=== PATIENT | female | born 1990 | race Caucasian/White ===

== ENCOUNTER 2022-10-31 09:48 | Emergency (ER) | payer SELFPAY ==
[2022-10-31 10:00] VITALS: BP 151/100; PULSE 72; RESP 16; TEMP 36; O2SAT 100; BMI 39.0
--- NOTE | 2022-10-31 10:22 | ED.CHESTPAIN ---
HPI - Chest Pain General Chief Complaint: Chest Pain Stated Complaint: Heart pain Time Seen by Provider: 10/31/22 10:21 History of Present Illness HPI narrative: 31-year-old woman presenting to the emergency department with complaint of little over 5 hours of mid sternal to just a little left sternal area chest pain. Describes it as a sharp ache. She woke from sleep at about 5:00 a.m. with this. She denies a history of heartburn. No shortness of breath. No nausea. Has had waxing and waning headache which she describes is frontal indicating oriental orthodox to oriental orthodox that she thinks is escalating when her blood pressure seems a little bit elevated. She does have a blood pressure 151/100 though it is lower during time of my assessment. Has been no head trauma noted. Does not have any neck pain. No fever cough and cold symptoms. Has had a feeling of some subtle dizziness. No discoordination. Also a little lightheadedness. No palpitations/irregular heartbeats. No leg pain, pressure swelling. Notes her blood pressure usually to be about 120/60. Does not have a significant family history of cardiac disease noting grandfather and an uncle. Just prior to my entering the room she does note that the palm of her left hand went tingly and then numb for about a minute and has now resolved. If it was not for the chest discomfort she would not be here. Related Data Home Medications Medication Instructions Recorded Confirmed folic acid 1 mg tablet 10/31/22 lacosamide 100 mg tablet mg 10/31/22 levetiracetam 500 mg mg PO 10/31/22 tablet,extended release 24 hr levothyroxine 150 mcg tablet mcg 10/31/22 venlafaxine 150 mg mg PO 10/31/22 capsule,extended release 24 hr Review of Systems Status of ROS Reports: 10 or more systems reviewed and unremarkable except as noted in History and below PFSH PFS Social History Smoking Status: Never smoker Do you use any of these nicotine containing products: None Second hand tobacco smoke exposure: No How often do you have a drink containing alcohol: never How often do you have six or more drinks on one occasion: Never AUDIT-C Alcohol total score: 0 Non-prescribed substance use: denies use service: No Exam Narrative Exam Narrative: Pleasant. NAD. Calm. Hair is dyed reddish pink. Breathing easily. Easily conversant. Skin is warm and dry. Extremities are well perfused without edema. Negative Homans. Neck is supple without lymphadenopathy. Oropharynx is moist and not erythematous. There is no supraclavicular crepitus. Lungs are clear. heart in a regular rhythm at a regular rate. Palpation of the chest wall does not clearly reproduce discomfort in areas as mentioned. Abdomen overweight soft no masses appreciated. Not particularly tender. Strong and equal radial pulses. No sensory deficits at this time. Mention was made of midback discomfort at one point. I return to examine and clearly quite tender in the left rhomboid/periscapular musculature. I am not convinced though that this is necessarily related to the chest discomfort. Const Vital Signs, click to edit/add: Vital Signs - 24 hr 10/31/22 10:00 Temperature 96.8 F L Pulse Rate [Left Pulse Oximeter] 72 Respiratory Rate 16 Blood Pressure [Left Upper Arm] 151/100 H Pulse Oximetry 100 Oxygen Delivery Method Room Air Documenting provider has reviewed patient's vital signs: yes Course Vital Signs Vital signs: Initial Vital Signs Temperature 96.8 F L 10/31/22 10:00 Temperature Source Temporal Artery Scan 10/31/22 10:00 Pulse Rate 72 10/31/22 10:00 Pulse Rhythm 10/31/22 10:00 Pulse Strength 3+ Normal 10/31/22 10:00 Respiratory Rate 16 10/31/22 10:00 Blood Pressure 151/100 H 10/31/22 10:00 Blood Pressure Mean 117 10/31/22 10:00 Blood Pressure Position Sitting 10/31/22 10:00 Pulse Oximetry 100 10/31/22 10:00 Oxygen Delivery Method 10/31/22 10:00 Vital Signs Temperature 96.8 F L 10/31/22 10:00 Pulse Rate 72 10/31/22 10:00 Respiratory Rate 16 10/31/22 10:00 Blood Pressure 151/100 H 10/31/22 10:00 Pulse Oximetry 100 10/31/22 10:00 Oxygen Delivery Method 10/31/22 10:00 Temperature 96.8 F L 10/31/22 10:00 Pulse Rate 72 10/31/22 10:00 Respiratory Rate 16 10/31/22 10:00 Blood Pressure 151/100 H 10/31/22 10:00 Pulse Oximetry 100 10/31/22 10:00 Oxygen Delivery Method 10/31/22 10:00 MDM - Chest Pain MDM Narrative Medical decision making narrative: Will be obtaining labs. Symptoms appear generally benign. However chest discomfort is not clearly reproducible. It seems Ms. Hollis may have had some question as to whether not lacosamide might be causing some of her discomfort. We discussed a broad differential. Unremarkable laboratory evaluation as well as one view chest x-ray as reviewed by me. No events on monitor during time in emergency department. Discomfort remained though appeared tolerable. Medical Records Data Attestation: I reviewed the patient's medical records. Lab Data Attestation: I reviewed the patient's lab results. Labs: Lab Results 10/31/22 10/31/22 10/31/22 Range/Units 10:31 10:51 10:51 WBC 6.54 (4.50-11.00) K/uL RBC 4.71 (4.00-5.20) m/uL Hgb 13.6 (12.0-16.0) gm/dL Hct 40.5 (33.0-51.0) % MCV 86 (80-100) fL MCH 29 (26-34) pg MCHC 34 (32-36) gm/dL RDW Coeff of Izaiah 12.8 (11.5-15.5) % Plt Count 226 (140-440) K/uL Neut % (Auto) 54.5 (42.0-72.0) % Lymph % (Auto) 32.9 (20-44) % [place] % (Auto) 9.2 (0.0-11.0) % Eos % (Auto) 2.3 (0.0-7.0) % Baso % (Auto) 0.8 (0.0-3.0) % Neut # (Auto) 3.57 (1.7-7.0) K/uL Lymph # (Auto) 2.15 (0.90-2.90) K/uL [place] # (Auto) 0.60 (0.00-0.90) K/UL Eos # (Auto) 0.15 (0.00-0.50) K/uL Baso # (Auto) 0.05 (0.00-0.30) K/uL D-Dimer Quant (PE/DVT) < 0.27 (0.00-0.50) ug/ml Sodium (135-149) mmol/L Potassium (3.6-5.1) mmol/L Chloride (96-114) mmol/L Carbon Dioxide (20-32) mmol/L BUN (5-24) mg/dL Creatinine (0.5-1.5) mg/dL Estimated Creat Clear Estimated GFR ml/min Glucose (60-115) mg/dL Calcium (8.4-10.6) mg/dL Total Bilirubin (0.1-1.5) mg/dL Direct Bilirubin (0.0-0.5) mg/dL AST (12-35) U/L ALT (4-35) U/L Alkaline Phosphatase (40-150) U/L Troponin I (0.01-0.04) ng/mL C-Reactive Protein (0.5-1.0) mg/dL NT-Pro-B Natriuret Pep pg/mL Total Protein (6.0-8.3) g/dL Albumin (3.3-5.0) g/dL Lipase (23-300) U/L POC Troponin I 0.00 L (0.01-0.04) ng/ml 10/31/22 Range/Units 10:51 WBC (4.50-11.00) K/uL RBC (4.00-5.20) m/uL Hgb (12.0-16.0) gm/dL Hct (33.0-51.0) % MCV (80-100) fL MCH (26-34) pg MCHC (32-36) gm/dL RDW Coeff of Izaiah (11.5-15.5) % Plt Count (140-440) K/uL Neut % (Auto) (42.0-72.0) % Lymph % (Auto) (20-44) % [place] % (Auto) (0.0-11.0) % Eos % (Auto) (0.0-7.0) % Baso % (Auto) (0.0-3.0) % Neut # (Auto) (1.7-7.0) K/uL Lymph # (Auto) (0.90-2.90) K/uL [place] # (Auto) (0.00-0.90) K/UL Eos # (Auto) (0.00-0.50) K/uL Baso # (Auto) (0.00-0.30) K/uL D-Dimer Quant (PE/DVT) (0.00-0.50) ug/ml Sodium 140 (135-149) mmol/L Potassium 3.5 L (3.6-5.1) mmol/L Chloride 113 (96-114) mmol/L Carbon Dioxide 17 L (20-32) mmol/L BUN 11 (5-24) mg/dL Creatinine 0.6 (0.5-1.5) mg/dL Estimated Creat Clear 112.38 Estimated GFR 123 ml/min Glucose 83 (60-115) mg/dL Calcium 9.2 (8.4-10.6) mg/dL Total Bilirubin 0.5 (0.1-1.5) mg/dL Direct Bilirubin 0.3 (0.0-0.5) mg/dL AST 29 (12-35) U/L ALT 23 (4-35) U/L Alkaline Phosphatase 50 (40-150) U/L Troponin I < 0.01 L (0.01-0.04) ng/mL C-Reactive Protein 0.7 (0.5-1.0) mg/dL NT-Pro-B Natriuret Pep 24 pg/mL Total Protein 7.2 (6.0-8.3) g/dL Albumin 4.3 (3.3-5.0) g/dL Lipase 92 (23-300) U/L POC Troponin I (0.01-0.04) ng/ml ECG Data Attestation: I personally reviewed and interpreted this ECG as follows: (Normal sinus rate of [address] elevations or depressions and no Q-waves.) Discharge Plan Discharge Clinical Impression: Atypical chest pain, Rhomboid myalgia Patient Disposition: Home w/ Parent or Adult Condition: Stable Additional Instructions: See handout on exercises for your upper back. Do that daily for a while, maybe incorporated into a regular exercise routine where you get your heart pumping a little bit every day. Return for marked increase in pain, associated shortness of breath. For now try naproxen as discussed up to 500 mg 2 times daily for the next 5 days. Might take this with a little bit of food. Prescriptions: No Action venlafaxine 150 mg capsule,extended release 24hr PO Label Comments: TAKE 1 CAPSULE BY MOUTH ONCE DAILY WITH EVENING MEAL. levothyroxine 150 mcg tablet Label Comments: TAKE 1 TABLET (150 MCG) BY MOUTH BEFORE BREAKFAST. folic acid 1 mg tablet Label Comments: TAKE 1 TABLET BY MOUTH EVERY DAY levetiracetam 500 mg tablet extended release 24 hr PO Label Comments: TAKE 4 TABLETS BY MOUTH TWICE A DAY lacosamide 100 mg tablet Label Comments: TAKE 1/2 TABLET TWICE DAILY FOR 1 WEEK,THEN 1 TABLET TWICE DAILY AND CONTINUE WITH THAT DOSE Follow Up/Referrals: Jess Marti MD [Primary Care Provider] - Stand Alone Forms: [employer] Info Instructions
--- NOTE | 2022-10-31 10:31 | CRLHL7_ITS ---
For Patients: As a result of the Century Cures Act, medical imaging exams and procedure reports are released immediately into your electronic medical record. You may view this report before your referring provider. If you have questions, please contact your health care provider. INDICATION: Chest pain. Technique: One-view chest. COMPARISON: None. FINDINGS: The lungs are clear. There is no pleural effusion or pneumothorax. The cardiac silhouette and pulmonary vascularity are normal. The osseous structures are normal for age. IMPRESSION: No acute pulmonary process. Dictated by Domo Dukes MD @ 10/31/2022 11:38:39 AM (Electronically Signed)
--- OUTSIDE RECORDS SUMMARY | 2022-10-31 10:45 | XMS_ITS ---
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 7108 34121 (current) drug therapy Problem Unspecified 268.9 Active 29421864 vitamin D deficiency Problem Epilepsy, G40.919 Active 318137844 unspecified, intractable, without status epilepticus Problem Depressive 311 Active 91107706 disorder, not elsewhere classified Problem Localization-relat 345.40 Active 4 49793313 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, without mention of intractable epilepsy Problem state, V22.2 Active 7738 6006 incidental Problem Epilepsy 649.40 Active 5256887257 32057 complicating , childbirth, or the puerperium, unspecified as to episode of care or not applicable Problem Unspecified 345.90 Active 35076318 epilepsy without mention of intractable epilepsy ALLERGIES Substance Reaction Event Type Date Status Levothyroxine (bulk) Drug Allergy Jul, Active Keflex Unknown Drug Allergy Jul, Active Amoxicillin rash Drug Allergy Jul, Active ENCOUNTERS Encounter Location Date Diagnosis [facility] [address] [place] Jul, Unspe cified [facility] [address] [place], [place] [address] intractable epil epsy 345.90 and [facility]) drug [facility] herapy Z79.899 [facility] [address] [place] Jun, Group [facility] [address] [place] [address] [facility] [address] [place] May, Group [facility] [address] [place] [address] [facility] [address] [place] May, Group [facility] [address] [place] [address] [facility] [address] [place] May, Group [facility] [address] [place] [address] [facility] [address] [place] Dec, Group [facility] [address] [place] [address] [facility] [address] [place] Dec, [place] [place] [address] [facility] [address] [place] Nov, [place] [place] [address] [facility] [address] [place] Aug, Unspeci fied epilepsy Group [place] [address] [place], [place] [address] intractable epil epsy 345.90 and [facility] drug [place] herapy Z79.899 [facility] [address] [place] Apr, Epile psy, unspecified, Group [facility] [place] [place] intractable, [place] [address] status epileptic us G40.919 [facility] [address] [place] Apr, Group [place] [address] [place] [address] [facility] [address] [place] Oct, Epile psy, unspecified, Group [facility] [place] [place] intractable, [place] [address] status epileptic us G40.919 [facility] [address] [place] Sep, Epile psy, unspecified, Group [facility] [place] intractable, [place] [address] status epileptic us G40.919 and Other long t erm (current) drug t herapy Z79.899 [facility] [address] [place] Sep, Group [place] [address] [facility] [address] [place] May, Epile psy, unspecified, Group [place] intractable, [place] [address] status epileptic us G40.919 [facility] [address] [place] May, 2020 KENNY SHAFFER [id number] [facility] [address] [place] Apr, Epile psy, unspecified, Group [place], [place] [address] status epileptic us G40.919 and Other long t erm (current) drug t herapy Z79.899 [facility] [address] [place] Apr, Group [place] [address] [facility] [address] [place] Apr, [place] [facility] Group [facility] KE[facility] drug therapy Z 79.899 and [address] Epilepsy, unspec ified, intractable, wit hout status epileptic us G40.919 [facility] [address] [place] Apr, [place] [address] [facility] [address] [place] Apr, [place] [address] [facility] [address] [place] Apr, Epile psy, unspecified, Group [place] [place] intractable, [place] [address] status epileptic us G40.919 [facility] [address] [place] Apr, Epile psy, unspecified, Group [place]EN[place] intractable, [place] [address] status epileptic us G40.919 and Other long t erm (current) drug t herapy Z79.899 [facility] [address] [place] 15 Oct, 2019 [place] [address] [facility] [address] [place] 14 Oct, 2019 Epile psy, unspecified, Group [place] intractable, [place] [address] status epileptic us G40.919 [facility] [address] [place] Oct, Epile psy, unspecified, Group [place] intractable, [place] [address] status epileptic us G40.919 [facility] [address] [place] Sep, Epile psy, unspecified, Group PA [address] [place], [place] intractable, [place] [address] status epileptic us G40.919 and Other long t erm (current) drug t herapy Z79.899 [facility] [address] [place] Sep, Epile psy, unspecified, Group PA [address] [place], [place] intractable, [place] [address] status epileptic us G40.919 [facility] [address] [place] Sep, Epile psy, unspecified, Group PA [address], [place] intractable, [place] [address] status epileptic us G40.919 and Other long t erm (current) drug t herapy Z79.899 [facility] [address] [place] Sep, Epile psy, unspecified, Group PA [address] [place], [place] intractable, [place] [address] status epileptic us G40.919 [facility] [address] [place] Sep, Epile psy, unspecified, Group PA [address] [place], [place] intractable, [place] [address] status epileptic us G40.919 [facility] [address] [place] Aug, Group PA [address] [place] [address] [facility] [address] [place] Aug, Epile psy, unspecified, Group PA [address] [place], [place] intractable, [place] [address] status epileptic us G40.919 and Other long t erm (current) drug t herapy Z79.899 [facility] [address] [place] Sep, Epile psy, unspecified, Group PA [address], [place] intractable, [place] [address] status epileptic us G40.919 and Other long t erm (current) drug t herapy Z79.899 [facility] [address] [place] May, Epile psy, unspecified, Group PA [address] [place], [place] intractable, [place] [address] status epileptic us G40.919 and Other long t erm (current) drug t herapy Z79.899 [facility] [address] [place] Apr, Epile psy, unspecified, Group [facility] [place] [place] intractable, [place] [address] status epileptic us G40.919 [facility] [address] [place] Apr, Epile psy, unspecified, Group KENNY [place] intractable, [place] [address] status epileptic us G40.919 and Other long t erm (current) drug t herapy Z79.899 [facility] [address] [place] February, Group [place] [address] [facility] [address] [place] Nov, Epile psy, unspecified, Group [place] int[place], [place] [address] status epileptic us G40.919 and Other long t erm (current) drug t herapy Z79.899 [facility] [address] [place] Oct, Group [place] [address] [facility] [address] [place] Nov, Group [place] [address] [facility] [address] [place] Oct, Group [place] [address] DO NOT USE [facility] [address] Sep, [facility] [address] [place] [id number] Group [facility] [address] [place] Jul, Group [place] [address] [facility] [address] [place] Sep, Encou nter for long-term Group KENNY KELLOGG (current) use of other [address] medications V58. 69 and Unspecified epil epsy without mention of intractable epil epsy 345.90 [facility] [address] [place] Aug, Group [place] [address] [facility] [address] [place] Aug, Group [place] [address] [facility] [address] [place] Mar, Group [place] [address] [facility] [address] [place] February, Group [place] [address] [facility] [address] [place] February, [place] [address] [facility] [address] [place] February, Local ization-related Group [place] (focal)(partia l) epilepsy [address] and epileptic sy ndromes with partial sei zures secondary genera lized, without mention of intractable epil epsy 345.40 ; Encount er for long-term (curre nt) use of other medication s V58.69 ; Epilepsy complic ating , child , or the puerperium, unspecified as t o episode of care or not a pplicable 649.40 and Pregn ant state, incidental V22.2 [facility] [address] [place] Mar, [place] [address] [facility] [place] Nov, Local ization-related Group [place] (focal) (parti al) epilepsy [address] and epileptic sy ndromes with complex par tial seizures, withou t mention of intractable e pilepsy 345.40 [facility] [place] Nov, Unspe cified epilepsy with Group [place] intractable ep ilepsy [address] 345.91 [facility] [address] [place] [address] A[place] Aug, [place] [address] [facility] [place] Aug, Local ization-related Group [place] (focal) (parti al) epilepsy [address] and epileptic sy ndromes with complex par tial seizures, withou t mention of intractable e pilepsy 345.40 [facility] [place] Mar, Group [place] [place] [address] [facility] [address] [place] Mar, [place] [address] IMMUNIZATIONS No Known Immunizations SOCIAL HISTORY Never Assessed REASON FOR REFERRAL FUNCTIONAL STATUS PLAN OF CARE Activity Details Follow Up 6 Months Reason: Future Test Electrocardiogram (EKG) 2021 1019 Future Test LEVETIRACETAM 20200509 Future Test LEVETIRACETAM 20180929 Future Test TOPIRAMATE 38242208 Future Test Levetiracetam (Keppra), S 20 175397 Future Test CBC With Differential/Platel et 20130303 Future Test Comp. Metabolic Panel (14) 2 3967244 Pending Test TOPIRAMATE Pending Test MAGNESIUM VITAL SIGNS Weight 104.4 kg 2021-08-27 Weight 101 kg 2020-10-01 Weight 97.7 kg 2020-05-16 Weight 95.3 kg 2019-09-21 Weight 91.9 kg 2018-09-29 Weight 85 kg 2017-09-16 Weight 93 kg 2016-09-24 Weight 101 kg 2016-05-29 Weight 102 kg 2015-12-12 Weight 91.2 kg 2013-09-22 Weight 92.9 kg 2013-03-02 Weight 93.3 kg 2011-11-20 Height 64 in 2022-08-06 Height 64 in 2021-08-27 Height 64 in 2020-10-01 Height 64 in 2020-05-16 Height 64 in 2019-09-21 Height 64 in 2018-09-29 Height 64 in 2017-09-16 Height 64 in 2016-09-24 Height 64 in 2016-05-29 Height 64 in 2015-12-12 Height 64 in 2013-09-22 Heart Rate 70 /min 2021-08-27 Heart Rate 92 /min 2020-10-01 Heart Rate 75 /min 2020-05-16 Heart Rate deferred /min 2019-09-21 Heart Rate 65 /min 2018-09-29 Heart Rate 70 /min 2017-09-16 Heart Rate 72 /min 2016-09-24 Heart Rate 54 /min 2016-05-29 Heart Rate 96 /min 2015-12-12 Heart Rate 62 /min 2013-09-22 Heart Rate 90 /min 2013-03-02 Heart Rate 97 /min 2011-11-20 BMI 39.50 kg/m2 2021-08-27 BMI 38.22 kg/m2 2020-10-01 BMI 36.97 kg/m2 2020-05-16 BMI 36.06 kg/m2 2019-09-21 BMI 34.77 kg/m2 2018-09-29 BMI 32.16 kg/m2 2017-09-16 BMI 35.19 kg/m2 2016-09-24 BMI 38.22 kg/m2 2016-05-29 BMI 38.59 kg/m2 2015-12-12 BMI 34.51 kg/m2 2013-09-22 BMI 27.12 kg/m2 2010-08-27 Blood pressure systolic 149 mm Hg 2021-08-27 Blood pressure diastolic 89 mm Hg 2021-08-27 MEDICATIONS Medication Instructions Dosage Frequency Start End Duration Statu s Date levETIRAcetam ER orally twice a 4 tablets 90 day s Active 500 MG day (bid) Citalopram 40 MG Orally Once a 0.5 tablet 24h Not-Takin g Folic Acid 1 mg 1 tablet 30 days Active SEROquel 25 MG Orally at 2 tablets Not-T porsha bedtime (q hs) g Topiramate 50 MG orally twice a 2 tablets 90 day s Active day (bid) Calcium with 4 tabs 24h Active Vitamin D 750 mg Nexplanon 68 MG Active Fish Oil 900mg qd Active busPIRone HCl 10 2 tablets Not-T porsha MG in the morning and 1 tablet at night Magnesium 100 MG Orally Once a 1 tablet 24h Oct, day(s ) Not-Takin day with food 2014 Vitamin D 1000 Orally Once a 6 tablets 24h A ctive UNIT day Synthroid 175 Orally in the 1 tablet Act shon MCG afternoon BRAND Vitamin B-1 100 Orally daily 1 tablet Un known MG (qd) Etonogestrel-Eth 1 ring Oct, day(s) Not-T porsha inyl Estradiol 2014 g 0.12-0.015 MG/24HR Effexor XR 150 Orally every 1 tablet Act shon MG morning (q am) Lacosamide 100 Orally twice a 1 tablet Jun, days A ctive MG day (bid) 2021 PROCEDURES Procedure Date Ordered Result Body Site ASSESS HLTH/BEHAVE, INIT Sep 25, 2017 Video EEG with interpretation 12-24 hrs Nov 20, 2011 NEUROPSYCH TST BY PSYCH/PHYS Sep 25, 2017 NEUROPSYCH TST ADMIN W/COMP Sep 25, 2017 NEUROPSYCH TESTING BY ROLO Sep 25, 2017 RESULTS Name Result Date Reference Range COMPREHENSIVE METABOLIC PANEL 2021-11-25 GLUCOSE UREA NITROGEN (BUN) CREATININE 0.72 eGFR NON-AFR. SAO TOMEAN eGFR BUN/CREATININE RATIO SODIUM 143 POTASSIUM CHLORIDE CARBON DIOXIDE CALCIUM PROTEIN, TOTAL ALBUMIN GLOBULIN ALBUMIN/GLOBULIN RATIO BILIRUBIN, TOTAL ALKALINE PHOSPHATASE 56 AST 22 ALT 28 EGFR CBC (INCLUDES DIFF/PLT) 2021-11-25 ABSOLUTE BASOPHILS ABSOLUTE EOSINOPHILS ABSOLUTE LYMPHOCYTES ABSOLUTE METAMYELOCYTES ABSOLUTE MONOCYTES ABSOLUTE PMN,ADULT BASOPHILS BLASTS CBC MORPHOLOGY COMMENT(S) EOSINOPHILS HEMATOCRIT HEMOGLOBIN IMMATURE GRAN IMMATURE GRAN ABSOLUTE LYMPHOCYTES MCH MCHC MCV METAMYELOCYTES MONOCYTES MORPHOLOGY MPV MYELOCYTES OTHER CELLS PLATELET COUNT PLATELET ESTIMATION PMN, ADULT PROMYELOCYTES RDW RED BLOOD CELL COUNT WHITE BLOOD CELL COUNT WHITE BLOOD CELL COUNT 8.1 RED BLOOD CELL COUNT HEMOGLOBIN 13.0 HEMATOCRIT MCV MCH MCHC RDW PLATELET COUNT 253 NEUTROPHILS BAND NEUTROPHILS ABSOLUTE BAND NEUTROPHILS METAMYELOCYTES ABSOLUTE METAMYELOCYTES MYELOCYTES ABSOLUTE MYELOCYTES PROMYELOCYTES ABSOLUTE PROMYELOCYTES ABSOLUTE NEUTROPHILS 3.9 LYMPHOCYTES REACTIVE LYMPHOCYTES ABSOLUTE LYMPHOCYTES MONOCYTES ABSOLUTE MONOCYTES EOSINOPHILS ABSOLUTE EOSINOPHILS BASOPHILS ABSOLUTE BASOPHILS BLASTS ABSOLUTE BLASTS NUCLEATED RBC ABSOLUTE NUCLEATED RBC COMMENT(S) MPV TOPIRAMATE 2021-11-25 TOPIRAMATE 5.7 LEVETIRACETAM 2021-11-25 LEVETIRACETAM 40.9 5 - 45 mcg/mL LEVETIRACETAM 2020-05-14 LEVETIRACETAM 46.0 5 - 45 mcg/mL LEVETIRACETAM 2018-10-21 LEVETIRACETAM 38.1 5 - 45 mcg/mL TOPIRAMATE 2018-10-21 TOPIRAMATE 2.4 BASIC METABOLIC PANEL 2016-04-30 GLUCOSE UREA NITROGEN (BUN) CREATININE 0.72 eGFR NON-AFR. SAO TOMEAN eGFR BUN/CREATININE RATIO SODIUM 142 POTASSIUM CHLORIDE CARBON DIOXIDE CALCIUM CBC (INCLUDES DIFF/PLT) 2016-04-30 ABSOLUTE BASOPHILS ABSOLUTE EOSINOPHILS ABSOLUTE LYMPHOCYTES ABSOLUTE METAMYELOCYTES ABSOLUTE MONOCYTES ABSOLUTE PMN,ADULT BASOPHILS BLASTS CBC MORPHOLOGY COMMENT(S) EOSINOPHILS HEMATOCRIT HEMOGLOBIN IMMATURE GRAN IMMATURE GRAN ABSOLUTE LYMPHOCYTES MCH MCHC MCV METAMYELOCYTES MONOCYTES MORPHOLOGY MPV MYELOCYTES OTHER CELLS PLATELET COUNT PLATELET ESTIMATION PMN, ADULT PROMYELOCYTES RDW RED BLOOD CELL COUNT WHITE BLOOD CELL COUNT WHITE BLOOD CELL COUNT 6.9 RED BLOOD CELL COUNT HEMOGLOBIN 12.9 HEMATOCRIT MCV MCH MCHC RDW PLATELET COUNT 218 NEUTROPHILS BAND NEUTROPHILS ABSOLUTE BAND NEUTROPHILS METAMYELOCYTES ABSOLUTE METAMYELOCYTES MYELOCYTES ABSOLUTE MYELOCYTES PROMYELOCYTES ABSOLUTE PROMYELOCYTES ABSOLUTE NEUTROPHILS 3.5 LYMPHOCYTES REACTIVE LYMPHOCYTES ABSOLUTE LYMPHOCYTES MONOCYTES ABSOLUTE MONOCYTES EOSINOPHILS ABSOLUTE EOSINOPHILS BASOPHILS ABSOLUTE BASOPHILS BLASTS ABSOLUTE BLASTS NUCLEATED RBC ABSOLUTE NUCLEATED RBC COMMENT(S) MPV LEVETIRACETAM 2016-04-30 LEVETIRACETAM 27.2 Levetiracetam (Keppra), S 2014-10-03 Please note Request Problem Specimen Status Report Levetiracetam, S 21.8 5 - 45 mg/L Levetiracetam, S Levetiracetam, S Ambalhaji Sandoval CMP14 Default Creatinine, Serum 2014-10-03 eGFR If Africn Am eGFR If NonAfricn Am Please note Creatinine, Serum 0.69 Glom Filt Rate, Est If Levetiracetam (Keppra), S 2013-03-08 Please note Request Problem Specimen Status Report Levetiracetam, S 23.9 5 - 45 mg/L Levetiracetam, S Levetiracetam, S Ambig Abbrev CMP14 Default CBC With Differential/Platelet 2013-03-08 Blasts/blast like cells Megakaryocytes WBC 10.3 RBC Hemoglobin 10.8 Hematocrit MCV MCH MCHC Neutrophils Immature Granulocytes Lymphs Monocytes Eos Basos Platelets 211 Hematology Comments: Neutrophils (Absolute) 6.8 Immature Grans (Abs) Lymphs (Absolute) Monocytes(Absolute) Eos (Absolute Value) Baso (Absolute) NRBC RDW Immature Cells Differential Comment Bands Metamyelocytes Myelocytes Other, Lineage Uncertain Promyelocytes Neutrophils Lymphs Monocytes Eos Basos Neutrophils Absolute Lymphs (Absolute) Monocytes(Absolute) Eos (Absolute Value) Baso(Absolute) Comp. Metabolic Panel (14) 2013-03-08 Ambiguous Test Order Request Problem Corrected Report Comment eGFR If Africn Am Sodium, Serum 141 Potassium, Serum Chloride, Serum Carbon Dioxide, Total Glucose, Serum Calcium, Serum BUN Creatinine, Serum 0.56 BUN/Creatinine Ratio Albumin, Serum Protein, Total, Serum Globulin, Total A/G Ratio Bilirubin, Total Alkaline Phosphatase, S 63 ALT (SGPT) 23 AST (SGOT) 18 eGFR If Africn Am eGFR If NonAfricn Am Bilirubin, Total ALT (SGPT) Alkaline Phosphatase, S A/G Ratio Globulin, Total Albumin, Serum Protein, Total, Serum Calcium, Serum AST (SGOT) Chloride, Serum Potassium, Serum Sodium, Serum BUN/Creatinine Ratio Glucose, Serum Creatinine, Serum Carbon Dioxide, Total BUN Glom Filt Rate, Est If eGFR Levetiracetam (Keppra), S 2013-01-24 Please note Request Problem Specimen Status Report Levetiracetam, S 17.7 5 - 45 mg/L Levetiracetam, S Levetiracetam, S Ambig Abbrev CMP14 Default Comp. Metabolic Panel (14) 2012-03-29 Ambiguous Test Order Request Problem Corrected Report Comment eGFR If Africn Am Sodium, Serum 141 Potassium, Serum Chloride, Serum Carbon Dioxide, Total Glucose, Serum Calcium, Serum BUN Creatinine, Serum 0.64 BUN/Creatinine Ratio Albumin, Serum Protein, Total, Serum Globulin, Total A/G Ratio Bilirubin, Total Alkaline Phosphatase, S ALT (SGPT) 27 AST (SGOT) 20 eGFR If Africn Am eGFR If NonAfricn Am Bilirubin, Total ALT (SGPT) Alkaline Phosphatase, S A/G Ratio Globulin, Total Albumin, Serum Protein, Total, Serum Calcium, Serum AST (SGOT) Chloride, Serum Potassium, Serum Sodium, Serum BUN/Creatinine Ratio Glucose, Serum Creatinine, Serum Carbon Dioxide, Total BUN Glom Filt Rate, Est If eGFR CBC With Differential/Platelet 2012-03-29 Blasts/blast like cells Megakaryocytes WBC 6.4 RBC Hemoglobin 12.4 Hematocrit MCV MCH MCHC Neutrophils Immature Granulocytes Lymphs Monocytes Eos Basos Platelets 251 Hematology Comments: Neutrophils (Absolute) 2.7 Immature Grans (Abs) Lymphs (Absolute) Monocytes(Absolute) Eos (Absolute Value) Baso (Absolute) NRBC RDW Immature Cells Differential Comment Bands Metamyelocytes Myelocytes Other, Lineage Uncertain Promyelocytes Neutrophils Lymphs Monocytes Eos Basos Neutrophils Absolute Lymphs (Absolute) Monocytes(Absolute) Eos (Absolute Value) Baso(Absolute) Levetiracetam (Keppra), S 2012-03-29 Please note Request Problem Specimen Status Report Levetiracetam, S 18.9 5 - 45 mg/L Levetiracetam, S Levetiracetam, S Trino Sandoval CMP14 Default REASON FOR VISIT Annual follow up visit for care of non-intractable epilepsy via telemedicine, Annual follow up, EKG results- start LCM, EKG order, EKG order , Sz activity, Req For a return letter , New presctption , sz update, Annual follow up visit for care of non-intractable epilepsy, lev xr refill, 04/26 scheduled--ted for MD-MD appt, please advise, Annual follow up visit for care of non-intractable epilepsy, 10/01 Appt in clinic, C/b regarding 06/02 MRI results , Arrive at 8:00AM , EEG today prior to visit , Annual follow up visit for care of non- intractable epilepsy, 100 [address], 05/16 missing TPM levle, Schedule an MRI-please c/b, Update Demographics - Personal Info, 05/08 - Concerns-please c/b, Sooner appt? PLease c.b to discuss, SCANNED IN - lab results to documents, probable sz 11/01/19- To DD FYI generic LEV XR, Keppra/medication side effect, Annual follow up visit for care of non-intractable epilepsy, Keppra ER 500mg-Pt Out FYI, Annual follow up visit for care of non-intractable epilepsy, Personality Ass essment Inventory, Neuropsychological Assessment, 09/16 Neuropsych , Follow up regarding epilepsy, Follow up regarding epilepsy, Headache, Follow up regarding epilepsy, 05/15 New order/LMTCB, migraines , lev er refill, 12 month follow up for care of her epilepsy , 11/22-(3x) lmtcb needs appt, DMV form, 10/03/2014 [place] OV w/DD, Please reschedule appointment, Follow up regarding epilepsy, 09/22 10AM appt, Need appt, Record request, med changes, Dr Watson- labs from pcp, epilepsy, cx by doctor - will need to call back to reschedule - 12 month f/u, ?'s re: labs, CX-got in sooner, Non-intractable Epilepsy, no call/ no show, medication adjustment, EMR prep Insurance Providers [facility] Member Patient Patient Patient Patient Patient Subscriber Subscriber Subscriber Group Insurance Plan Plan Plan Plan ID Relationship Address Phone Name Date of ID Name Date of No Type Insurance Insurance Insurance Coverage to Subscriber Address Phone Name Dates BLUE PLUS [id number] PO [phone] BLUE PLUS self Karla [id number] [address] [address] [address] [place] [address] [address] [facility] [address] BLUE [id number] PO [phone] BLUE self Karla [id number] QW [id number] [place] [address] [address] [address] [place] [address] [facility] [address] [facility] [address] UNITED self Karla [id number] HEALTHCARE [id number] [address] BLUE [id number] [phone] BLUE self Karla [id number] [facility] [id number] [place] [id number] [facility] [address] [address] [place] [address] [address] [id number] MEDICAID self [place] 115 [id number] [facility] [address] [place] [id number]
[2022-10-31 11:12] LABS: Basophils Absolute Auto 0.05 K/uL (0.00-0.30); Basophils Percent Auto 0.8 % (0.0-3.0); Eosinophils Absolute Auto 0.15 K/uL (0.00-0.50); Eosinophils Percent Auto 2.3 % (0.0-7.0); Hematocrit 40.5 % (33.0-51.0); Hemoglobin* 13.6 gm/dL (12.0-16.0); Immature Granulocytes Abs Auto 0.02 K/uL (0.00-0.30); Immature Granulocytes Pct Auto 0.3 %; Lymphocytes Absolute Auto 2.15 K/uL (0.90-2.90); Lymphocytes Percent Auto 32.9 % (20-44); Mean Corpuscular HGB Conc 34 gm/dL (32-36); Mean Corpuscular Hemoglobin 29 pg (26-34); Mean Corpuscular Volume 86 fL (80-100); Monocytes Percent Auto 9.2 % (0.0-11.0); Neutrophils Absolute Auto 3.57 K/uL (1.7-7.0); Neutrophils Percent Auto 54.5 % (42.0-72.0); Platelet Count* 226 K/uL (140-440); RDW Coefficient of Variation % 12.8 % (11.5-15.5); Red Blood Count 4.71 m/uL (4.00-5.20); White Blood Count* 6.54 K/uL (4.50-11.00)
[2022-10-31 11:14] LABS: Slide Review Reflex No
[2022-10-31 11:31] LABS: Albumin* 4.3 g/dL (3.3-5.0); Chloride* 113 mmol/L (96-114); Sodium* 140 mmol/L (135-149)
[2022-10-31 11:32] LABS: Potassium* 3.5 mmol/L (3.6-5.1)
[2022-10-31 11:34] LABS: Creatinine* 0.6 mg/dL (0.5-1.5); Est. Creatinine Clearance* 112.38; Estimated Glomerular Filt Rate 123 ml/min
[2022-10-31 11:35] LABS: Alanine Aminotransferase* 23 U/L (4-35); Alkaline Phosphatase* 50 U/L (40-150); Aspartate Amino Transferase* 29 U/L (12-35); Bilirubin Direct* 0.3 mg/dL (0.0-0.5); Bilirubin Total* 0.5 mg/dL (0.1-1.5); Blood Urea Nitrogen* 11 mg/dL (5-24); Calcium* 9.2 mg/dL (8.4-10.6); Carbon Dioxide* 17 mmol/L (20-32); Glucose* 83 mg/dL (60-115); Lipase* 92 U/L (23-300); Total Protein* 7.2 g/dL (6.0-8.3)
[2022-10-31 11:37] LABS: C Reactive Protein* 0.7 mg/dL (0.5-1.0)
[2022-10-31 11:44] LABS: D Dimer Quantitative* < 0.27 ug/ml (0.00-0.50)
[2022-10-31 11:51] LABS: Troponin I* < 0.01 ng/mL (0.01-0.04)
[2022-10-31 14:52] LABS: NT Pro B Type NatriureticPept* 24 pg/mL
--- OUTSIDE RECORDS SUMMARY | 2022-11-05 15:45 | XMS_ITS ---
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 Active 7108 27879 (current) drug therapy Problem Unspecified 268.9 Active 03138740 vitamin D deficiency Problem Epilepsy, G40.919 Active 062486318 unspecified, intractable, without status epilepticus Problem Depressive 311 Active 64131634 disorder, not elsewhere classified Problem Localization-relat 345.40 Active 4 75828050 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, without mention of intractable epilepsy Problem state, V22.2 Active 7738 6006 incidental Problem Epilepsy 649.40 Active 3487132862 45652 complicating , childbirth, or the puerperium, unspecified as to episode of care or not applicable Problem Unspecified 345.90 Active 79560076 epilepsy without mention of intractable epilepsy ALLERGIES Substance Reaction Event Type Date Status Levothyroxine (bulk) Drug Allergy Jul, Active Keflex Unknown Drug Allergy Jul, Active Amoxicillin rash Drug Allergy Jul, Active ENCOUNTERS Encounter Location Date Diagnosis [facility] [address] [place] Jul, [facility]spe [facility] [address] [place], [place] [address] intractable epil epsy 345.90 and Other fdc (current) drug t herapy Z79.899 [facility] [address] [place] Jun, Group [place] [address] [place] [address] [facility] [address] [place] May, Group [place] [address] [place] [address] [facility] [address] [place] May, Group [place] [address] [place] [address] [facility] [address] [place] May, Group [place] [address] [place] [address] [facility] [address] [place] Dec, Group [place] [address] [place] [address] [facility] [address] [place] Dec, Group [place] [place] [address] [facility] [address] [place] Nov, [place] [place] [address] [facility] [address] [place] Aug, Unspeci fied epilepsy Group [place] [address] [place], [place] [address] intractable epil epsy 345.90 and Other fdc (current) drug t herapy Z79.899 [facility] [address] [place] Apr, Epile psy, unspecified, Group [place]NY [place] intractable, [place] [address] status epileptic us G40.919 [facility] [address] [place] Apr, [facility] [place] [address] [place] [address] [facility] [address] [place] Oct, Epile psy, unspecified, Group [facility] [place] intractable, [place] [address] status epileptic us G40.919 [facility] [address] [place] Sep, Epile psy, unspecified, Group [place] intractable, [place] [address] status epileptic us G40.919 and Other long t erm (current) drug t herapy Z79.899 [facility] [address] [place] Sep, Group [place] [address] [facility] [address] [place] May, Epile psy, unspecified, Group KENNY [place] intractable, [place] [address] status epileptic us G40.919 [facility] [address] [place] May, 2020 KENNY SHAFFER [id number] [facility] [address] [place] Apr, Epile psy, unspecified, Group [place] intractable, [place] [address] status epileptic us G40.919 and Other long t erm (current) drug t herapy Z79.899 [facility] [address] [place] Apr, Group [place] [address] [facility] [address] [place] Apr, Other fdc (current) Group KENNY KELLOGG drug therapy Z 79.899 and [address] Epilepsy, unspec ified, intractable, wit hout status epileptic us G40.919 [facility] [address] [place] Apr, [place] [address] [facility] [address] [place] Apr, [place] [address] [facility] [address] [place] Apr, Epile psy, unspecified, Group KENNY KELLOGG intractable, [place]out [address] status epileptic us G40.919 [facility] [address] [place] Apr, Epile psy, unspecified, Group KENNY KELLOGG intractable, w [place]out [address] status epileptic us G40.919 and Other long t erm (current) drug t herapy Z79.899 [facility] [address] [place] 15 Oct, 2019 [place] [address] [facility] [address] [place] 14 Oct, 2019 Epile psy, unspecified, [place] intractable, [place] [address] status epileptic us G40.919 [facility] [address] [place] Oct, Epile psy, unspecified, [place] intractable, [place] [address] status epileptic us G40.919 [facility] [address] [place] Sep, Epile psy, unspecified, Group [place] [address] [place], [place] intractable, [place] [address] status epileptic us G40.919 and Other long t erm (current) drug t herapy Z79.899 [facility] [address] [place] Sep, Epile psy, unspecified, Group [place] [address] [place], [place] intractable, [place] [address] status epileptic us G40.919 [facility] [address] [place] Sep, Epile psy, unspecified, Group [facility] [address], [place] intractable, [place] [address] status epileptic us G40.919 and Other long t erm (current) drug t herapy Z79.899 [facility] [address] [place] Sep, Epile psy, unspecified, Group [facility] [address] [place], [place] intractable, [place]out [address] status epileptic us G40.919 [facility] [address] [place] Sep, Epile psy, unspecified, Group [facility] [address] [place], [place] intractable, w ithout [address] status epileptic us G40.919 [facility] [address] [place] Aug, Group [place] [address] [place] [address] [facility] [address] [place] Aug, Epile psy, unspecified, Group [facility] [address] [place], [place] intractable, [place] [address] status epileptic us G40.919 and Other long t erm (current) drug t herapy Z79.899 [facility] [address] [place] Sep, Epile psy, unspecified, Group [facility] [address], [place] intractable, [place] [address] status epileptic us G40.919 and Other long t erm (current) drug t herapy Z79.899 [facility] [address] [place] May, Epile psy, unspecified, Group [facility] [address] [place], [place] intractable, [place]out [address] status epileptic us G40.919 and Other long t erm (current) drug t herapy Z79.899 [facility] [address] [place] Apr, Epile psy, unspecified, Group [facility] KENNY [place] intractable, [place] [address] status epileptic us G40.919 [facility] [address] [place] Apr, Epile psy, unspecified, Group KENNY KELLO[place] intractable, [place] [address] status epileptic us G40.919 and Other long t erm (current) drug t herapy Z79.899 [facility] [address] [place] February, Group [place] [address] [facility] [address] [place] Nov, Epile psy, unspecified, Group [place] intractable, [place] [address] status epileptic us G40.919 and Other long t erm (current) drug t herapy Z79.899 [facility] [address] [place] Oct, Group [place] [address] [facility] [address] [place] Nov, Group [place] [address] [facility] [address] [place] Oct, Group [place] [address] DO NOT USE [place] [address] [facility] [address] Suite Sep, [facility] [address] [place], [place] [id number] Group [facility] [address] [place] Jul, Group [place] [address] [facility] [address] [place] Sep, Encou nter for long-term Group KENNY KELLOGG (current) use of other [address] medications V58. 69 and Unspecified epil epsy without mention of intractable epil epsy 345.90 [facility] [address] [place] Aug, Group [place] [address] [facility] [address] [place] Aug, Group [place] [address] [facility] [address] [place] Mar, Group [place] [address] [facility] [address] [place] February, Group [place] [address] [facility] [address] [place] February, Group [place] [address] [facility] [address] [place] February, Local ization-related Group [place] (focal)(partia l) epilepsy [address] and epileptic sy ndromes with partial sei zures secondary genera lized, without mention of intractable epil epsy 345.40 ; Encount er for long-term (curre nt) use of other medication s V58.69 ; Epilepsy complic ating , child , or the puerperium, unspecified as t o episode of care or not a pplicable 649.40 and Pregn ant state, incidental V22.2 [facility] [address] [place] Mar[place] [address] [facility] [place] Nov, Local ization-related Group [place] (focal) (parti al) epilepsy [address] and epileptic sy ndromes with complex par tial seizures, withou t mention of intractable e pilepsy 345.40 [facility] [place] Nov, Unspe cified epilepsy with [place] intractable ep ilepsy [address] 345.91 [facility] [address] [place] [address] A[place] Aug, [place] [address] [facility] [address] [place] Aug, Local ization-related [place] (focal) (parti al) epilepsy [address] and epileptic sy ndromes with complex par tial seizures, withou t mention of intractable e pilepsy 345.40 [facility] [place] Mar, [place] [address] [facility] [address] [place] Mar, [place] [address] IMMUNIZATIONS No Known Immunizations SOCIAL HISTORY Never Assessed REASON FOR REFERRAL FUNCTIONAL STATUS PLAN OF CARE Activity Details Follow Up 6 Months Reason: Future Test Electrocardiogram (EKG) 2021 1019 Future Test LEVETIRACETAM 20200509 Future Test LEVETIRACETAM 20180929 Future Test TOPIRAMATE 96678680 Future Test Levetiracetam (Keppra), S 20 332517 Future Test CBC With Differential/Platel et 20130303 Future Test Comp. Metabolic Panel (14) 2 8756625 Pending Test TOPIRAMATE Pending Test MAGNESIUM VITAL [...] 1 tablet 24h Oct, day(s ) Not-Takin with food 2014 Vitamin D 1000 Orally [...] PROCEDURES Procedure Date Ordered Result Body Site Video EEG with interpretation 12-24 hrs Nov 20, 2011 ASSESS HLTH/BEHAVE, INIT Sep 25, 2017 NEUROPSYCH TST BY PSYCH/PHYS Sep 25, 2017 NEUROPSYCH TST ADMIN W/COMP Sep 25, 2017 NEUROPSYCH TESTING BY ROLO Sep 25, 2017 RESULTS Name Result Date Reference Range COMPREHENSIVE METABOLIC PANEL 2021-11-25 GLUCOSE UREA NITROGEN (BUN) CREATININE 0.72 eGFR NON-AFR. CROATIAN eGFR BUN/CREATININE RATIO SODIUM 143 POTASSIUM CHLORIDE [...] UREA NITROGEN (BUN) CREATININE 0.72 eGFR NON-AFR. CROATIAN eGFR BUN/CREATININE RATIO SODIUM 142 POTASSIUM CHLORIDE [...] 11/22-(3x) lmtcb needs appt, DMV form, 10/03/2014 Katy OV w/DD, Please reschedule appointment, Follow up regarding epilepsy, 09/22 10AM appt, Need appt, Record request, med changes, Dr Watson- labs from pcp, epilepsy, cx by doctor - will need to call back to reschedule - 12 month f/u, ?'s re: labs, CX-got in sooner, Non-intractable Epilepsy, no call/ no show, medication adjustment, EMR prep Insurance Providers [facility] Member Patient Patient Patient Patient Patient Subscriber Subscriber Subscriber Group Insurance Plan Plan Plan Plan ID Relationship Address Phone Name Date of ID Name Date of No Type Insurance Insurance Insurance Coverage to Subscriber Address Phone Name Dates [place]ID [address] [address] [phone] MEDICAID self Karla [id number] [facility] [address] [facility] [address] BLUE [id number] PO [phone] BLUE self Karla [id number] [facility] [id number] [place] [address] [address] [address] [place] [address] [facility] [address] BLUE [id number] POB [phone] BLUE self Karla [id number] [facility] [id number] [place] [address] [place] [address] [facility] [address] UNITED [phone] UNITED self Karla [id number] [facility] [id number] [facility] [address] BLUE PLUS [id number] PO [phone] BLUE PLUS self [place] [id number] [place] [address] [address] [address] [place] [address] [facility] [address]
== END 2022-10-31 12:41 | disposition home or self-care (01) ==
PROVIDERS: Emergency Provider Family Medicine; PCP Family Medicine
DX: R07.89 Other chest pain (principal); M79.10 Myalgia, unspecified site
CPT/HCPCS: 36415; 71045; 80048; 80076; 83690; 83880; 84484; 85025; 85379; 86140; 93005; 99284; 99285

== ENCOUNTER 2025-01-16 21:52 | Emergency (ER) | payer OTHER, MEDICAID, SELFPAY ==
--- OUTSIDE RECORDS SUMMARY | 2025-01-16 21:55 | XMS_ITS | Clinical Summary ---
Author Organization [facility] Address [address] [place] [address] Care Team Providers Care Automation Architect Name Role Phone Kaia Jess Vides MD Primary Care Provider Levon Gregg MD Unavailable Unavailable Abhinav Husain MD Unavailable [phone] Allergies Active Allergy Reactions Criticality Noted Date Comments Amoxicillin Rash 04/30/2011 Cephalexin Hives 08/24/2012 Latex Erythema 07/08/2015 Levothyroxine (Bulk) Hives 03/29/2012 Medications levETIRAcetam (KEPPRA XR) 500 mg Tb24 Extended-Release tabletIndications:S eizure (HC) Take 4 tablets by mouth every 12 hours. 240 tablet 1 8 Active Cholecalciferol, Vitamin D3, 3,000 unit tabIndications:Hyacinth min D deficiency Take 2 Tablets (6,000 units) by mouth once daily. 180 Tablet 3 1 Active lacosamide (VIMPAT) 100 mg tab tablet Take 1 Tablet by mouth two times daily. 2 Active folic acid 1 mg tabletIndications:N onintractable epilepsy without status epilepticus, unspecified epilepsy type (HC) TAKE 1 TABLET BY MOUTH EVERY DAY 90 Tablet 2 3 Active loratadine-pseudoep hedrine (CLARITIN-D 24 HOUR) 10-240 mg 24hr tabletIndications:A llergic rhinitis, unspecified seasonality, unspecified trigger Take 1 Tablet by mouth once daily. 90 Tablet 3 4 Active levothyroxine (SYNTHROID) 175 mcg tabletIndications:O ther specified hypothyroidism Take 1 Tablet (175 mcg) by mouth before breakfast. 90 Tablet 3 5 Active losartan (COZAAR) 25 mg tabletIndications:H TN (hypertension) Take 1 Tablet (25 mg) by mouth once daily. 90 Tablet 3 5 Active venlafaxine (EFFEXOR XR) 75 mg cp24 Extended-Release capsuleIndications: Depressive disorder,Anxiety state Take 1 Capsule (75 mg) by mouth once daily with a meal. Take with 150 mg for total daily dose of 225 mg 90 Capsule 3 5 Active venlafaxine (EFFEXOR XR) 150 mg Extended-Release capsuleIndications: Depressive disorder,Anxiety state Take 1 Capsule (150 mg) by mouth once daily with evening meal. Take with 75 mg for a total dose of 225 mg/day 90 Capsule 3 5 Active Hospital, Clinic, or Other Facility Administered Medication Ordered Dose Route Frequency Start Date End Date Status etonogestrel subdermal implant (NEXPLANON) 1 EachIndications:Encounter for removal and reinsertion of Nexplanon 1 Each Sdrm Q 3 YEARS 04/16/2022 Active Active Problems Problem Noted Date Diagnosed Date High-risk human papillomavir us (HPV) DNA detected in cervical specimen, not type 16 or 18 07/28/2023 Overview (11/01/2024): 07/2023 NIL/HPV+, HPV 16/18 Negative 10/2024 NIL/HPV+, HPV 16/18 Negative Plan: Colposcopy Depression, major, single episode, severe 2020 Major depressive disorder, recurrent, moderate 1 10/23/2019 Adjustment disorder with mixed anxiety and depre ssed mood 08/23/2020 Seizure 01/13/2018 Headache 01/13/2018 Migraine 01/13/2018 Chest pain 01/13/2018 Vitamin D deficiency 07/02/2012 Unspecified hypothyroidism 03/03/2011 Anxiety state, unspecified 10/09/2010 Depressive disorder, not elsewhere classified Epilepsy 07/25/2010 Resolved Problems Problem Noted Date Diagnosed Date Resolved Date Normal in multigravida 10/22/2015 06/30/2016 Normal in multigravida 04/24/2015 06/30/2016 Overview (11/28/2015): On Keppra for sz disorder, increased folic acid during and needing monthly keppra levels. Normal level 2 ultrasound , it's a girl Rubella equivocal TDaP 10/22/2015 GBS NEGATIVE HEMOGLOBIN (g/dL) Date Value 11/26/2015 11.1* FOB Justin, no longer involved. Mild hyperemesis gravidarum, antepartum 11/01/2012 06/30/2016 Supervision of normal first 09/13/2012 07/03/2014 Overview (04/01/2013): On Keppra for seizure disorder, needs monthly levels and consultation. Rubella Non-Immune It's a girl! TDaP 01/24/2013 HEMOGLOBIN (g/dL) Date Value 03/28/2013 10.6* GBS POSITIVE SORE THROAT, STREPTOCOCCAL 01/22/2000 0 12/17/2010 Encounters Date Type Department Care Team Description 12/16/2024 9:25 AM TAPE RECORDER MECHANIC Office Visit [facility] [address] [place] [address] Dinah Leyva PA Cough (X2 days ); Throat Pain/problem (X2 days ) 12/16/2024 Travel 11/01/2024 Telephone [facility] [address] [facility] [place] [address] Jess Marti MD Pap Plan 10/24/2024 10:00 AM TAPE RECORDER MECHANIC Orders Only [facility] [address] [place] [address] Lab, [facility] 10/24/2024 7:50 AM TAPE RECORDER MECHANIC Office Visit [facility] [address] [place] [address] Jess Marti MD Physical (33 yr/Medication refills/) 10/24/2024 Travel from Last 3 Months Immunizations Immunization Administration Dates Next Due COVID-19 vaccine (AF83-Bio NTech 30mcg/0.3mL) JUAN DIEGO PEREZ 07/15/2021,06/05/2021 DTP 04/26/1992, 1,03/16/1991,1990 DTaP 06/24/1995 HIB PRP-OMP (PedvaxHIB) 05/16/1991,03/16/1991 Hib Conjugate, Unspecified 04/26/1992 Human Papilloma Virus Vaccine 05/19/2014, 011,12/27/2010 Influenza, IIV3 (Age 6-35 mos) 06/30/2016,2014 Influenza, IIV3 (Age >=3 years) 07/03/2015,07/11,06/09/2012 Influenza, IIV4 08/23/2020, 9,08/16/2018,2016 MMR 05/04/2013,08/02/2003,04/26/1992 Oral Polio Vaccine 06/24/1995, 2,05/16/1991,1990,1990 Tdap 10/22/2015,01/24/2013,07/18/2003 Family History Medical History Relation Name Comments Seizures Father Diabetes Maternal Grandfather Hypertension Mother Genetic Other cancer,HTN,Diab etes, Relation Name Status Comments Father Maternal Grandfather Mother Other Social History Tobacco Use Types Packs/Day Years Used Date Smoking Tobacco: Former Cigarettes 0 02/02/2009 - 07/05/2011 Smokeless Tobacco: Never Snuff Tobacco Cessation:Counseling Given: Yes Comments:start date was unknown Alcohol Use Standard Drinks/Week Comments Yes 1 (1 standard drink = 0.6 oz pur e alcohol) very rarely PHQ-2 Answer Date Recorded PHQ-2 TOTAL SCORE 2 10/24/2024 Social Connections Answer Date Recorded Do you often feel lonely or isolated from those around you? 4 09/28/2024 Financial Resource Strain Answer Date R ecorded Difficulty of Paying Living Expenses 3 09/28/2024 Difficulty of Paying Living Expenses Not on file 09/28/2024 Food Insecurity Answer Date Recorded Do you worry your food will run out before you are able to buy more? 1 09/28/2024 Transportation Needs Answer Date Record ed Does lack of transportation keep you from medica l appointments? 1 09/28/2024 Does lack of transportation keep you from work, meetings or getting things that you need? 1 09/28/2024 Housing Stability Answer Date Recorded What is your housing situation today? 1 09/28/2024 Utilities Answer Date Recorded Do you have trouble paying f or utilities (for example, heat, electricity, water, phone)? 1 09/28/2024 Comments No Sex and Gender Information Value Date Recorded Sex Assigned at Not on file Legal Sex Female 5:24 AM TAPE RECORDER MECHANIC Gender Identity Not on file Sexual Orientation Not on file Occupation Industry Job Start Date Job End Date Not on file Not on file Not on file Not on file Obstetrics History Para Term AB IAB SAB Ectopic Multiple Livin g Live Births 2 1 Date Outcome GA Total Labor Labor/2nd/3rd Weight Sex Type Anes PTL Giana A1 A5 Name Clin 013 41w 0d 34h 00m/ 3.35 kg (7 lb 6 oz) F C-Sec tion Nimo Evonne Comments:slow to progr ess, cord wrapped Last Filed Vital Signs Vital Sign Reading Time Taken Comments Blood Pressure 139/91 12/16/2024 9:25 AM TAPE RECORDER MECHANIC Pulse 82 12/16/2024 9:25 AM TAPE RECORDER MECHANIC Temperature 36.8 C (98.2 F) 09/28/2024 8:52 AM TAPE RECORDER MECHANIC Respiratory Rate 16 08/28/2020 7:00 AM TAPE RECORDER MECHANIC Oxygen Saturation 100% 12/16/2024 9:25 AM TAPE RECORDER MECHANIC Inhaled Oxygen Concentration - - Weight 104.1 kg (229 lb 8 oz) 12/16/2024 9:25 AM TAPE RECORDER MECHANIC Height 161 cm (5' 3.39) 10/24/2024 8:02 AM TAPE RECORDER MECHANIC Body Mass Index 40.16 10/24/2024 8:02 AM TAPE RECORDER MECHANIC Plan of Treatment Health Maintenance Due Date Last Done Comments COVID-19 vaccine series ( season) 2024 07/15/2021, 06/05/2021 Influenza Vaccine (#1) 2024 , 09/20/2019, 08/16/2018, Additional history exists Tetanus booster 10/22/2025 10/22/2015, 04/0 05/2013, 07/18/2003 BMI (ht and wt on same day) for age 18+ 10/24/2025 10/24/2024, 07/20/2023, 02/26/2023, Additional history exists Depression screening for age 12+ 10/24/2025 10/24/2024, 10/24/2024, 08/18/2023, Additional history exists Pap test for age 21-65 10/24/2027 , 10/24/2024, 07/20/2023, Additional history exists HIV for age 15-65 Completed 04/24/2015, 09/06/2012 Tdap Completed 10/22/2015, 04/05/2013, 07/18/2003 Hepatitis C screening for age 18-79 Completed 03/12/2023 Pneumococcal series for age 6-49 Aged Out No longer eligible based on patient's age to complete this topic Procedures Procedure Name Priority Date/Time Associated Diagnosis Comments THROAT RAPID STREP ONLY CLINIC Routine 12/16/2024 9:35 AM TAPE RECORDER MECHANIC Cough, unspecified type Fever, unspecified fever cause COVID/FLU/RSV PANEL Routine 12/16/2024 9:33 AM TAPE RECORDER MECHANIC Cough, unspecified type Fever, unspecified fever cause TSH Routine 10/24/2024 9:23 AM TAPE RECORDER MECHANIC Other specified hypothyroidism BASIC METABOLIC PANEL Routine 10/24/2024 9:23 AM TAPE RECORDER MECHANIC HTN (hypertension) PROGRAM SUPPORT ASSISTANT THIN PREP PAP SCREEN IMAGED Routine 10/24/2024 8:43 AM TAPE RECORDER MECHANIC Screening for cervical cancer HPV HIGH RISK Routine 10/24/2024 8:43 AM TAPE RECORDER MECHANIC Screening for cervical cancer LC HCV ANTIBODY RFX TO QUANT PCR Routine 03/12/2023 9:16 AM CDT Need for hepatitis C screening test ANTI HIV 1/2 Routine 04/24/2015 10:59 AM CDT Supervision of other normal , first trimester from Last 3 Months or Most Recently Relevant to Health Maintenance Results * POCT Throat Rapid Strep (12/16/2024 9:35 AM TAPE RECORDER MECHANIC) POC, GROUP A STREP NOT DETECTED NOT DETECTED [facility] Comment: The [employer] recommends that a throat culture be performed if a rapid group A streptococcus assay yields a negative result. [facility] recommends Streptococcus, Group A culture. Throat SPECIMEN FROM THROAT / Unknown 12/16/2024 9:35 AM TAPE RECORDER MECHANIC 12/16/2024 9:35 AM TAPE RECORDER MECHANIC Dinah VIDAL MICROBIOLOGY Final Result [facility] [address] [place] [address], [facility] [address] [place] [address] * COVID/FLU/RSV PANEL (12/16/2024 9:33 AM TAPE RECORDER MECHANIC) [facility] COVID 19 [facility] Negative Negative 12/16/2024 2:37 PM TAPE RECORDER MECHANIC [facility] Comment:All PCR tests are paul bject to false negative result due to variability in viral load and collection technique. A negative result does not rule out a SARS-CoV-2 infection. Clinical correlation required. INFLUENZA A PCR Negative 2:37 PM TAPE RECORDER MECHANIC [facility] INFLUENZA B PCR Negative 2:37 PM TAPE RECORDER MECHANIC [facility] Respiratory Syncytial Virus Negative 12/16/2024 2:37 PM TAPE RECORDER MECHANIC [facility] Swab NASOPHARYNGEAL SWAB / Unknown Non-Blood / Unknown 12/16/2024 9:33 AM TAPE RECORDER MECHANIC 12/16/2024 9:33 AM TAPE RECORDER MECHANIC Dinah VIDAL MICROBIOLOGY Final Result [facility] [address] [place] [address], [place] * TSH (10/24/2024 9:23 AM TAPE RECORDER MECHANIC) [facility] TSH 0.69 mIU/L [facility] Comment: Reference Range > or = 20 Years 0.40-4.50 Ranges First trimester 0.26-2.66 Second trimester 0.55-2.73 Third trimester 0.43-2.91 Blood BLOOD SPECIMEN / Unknown 10/24/2024 9:23 AM TAPE RECORDER MECHANIC 10/24/2024 9:24 AM TAPE RECORDER MECHANIC us Jess Mrati MD CHEMISTRY Final R esult [facility] [employer] [facility] [address] [place] [address], [facility] [address] [place] [address] * BASIC METABOLIC PANEL (10/24/2024 9:23 AM TAPE RECORDER MECHANIC) [facility] GLUCOSE 87 65 - 99 mg/dL [facility] Comment: Fasting reference interval UREA NITROGEN (BUN) 14 7 - 25 mg/dL [facility] CREATININE 0.58 0.50 - 0.97 mg/dL [facility] EGFR 122 > OR = 60 mL/min/1. 73m2 [facility] BUN/CREATININE RATIO SEE NOTE: 6 - 22 (calc) [facility] Comment: Not Reported: BUN and Creatinine are within reference range. SODIUM 138 135 - 146 mmol/L [facility] POTASSIUM 4.3 3.5 - 5.3 mmol/L [facility] CHLORIDE 103 98 - 110 mmol/L [facility] CARBON DIOXIDE 25 20 - 32 mmol/L [facility] ELECTROLYTE BALANCE 10 7 - 17 mmol/L (calc) [facility] CALCIUM 9.7 8.6 - 10.2 mg/dL [facility] Blood BLOOD SPECIMEN / Unknown 10/24/2024 9:23 AM TAPE RECORDER MECHANIC 10/24/2024 9:24 AM TAPE RECORDER MECHANIC us Jess Marti MD CHEMISTRY Final R esult [employer] [facility] [address] [place] [address], [facility] [address] [place] [address] * PROGRAM SUPPORT ASSISTANT THIN PREP PAP SCREEN IMAGED [[id number]] (10/24/2024 8:43 AM TAPE RECORDER MECHANIC) Case Report Gynecologic Cytology Report Case: [id number] Authorizing Provider: Jess Marti MD Collected: 10/24/2024 0843 Ordering Location: [facility] Received: 10/24/2024 0843 Clinic First Screen: Felix Sanchez Rescreen: Radha Drummond Specimen: PROGRAM SUPPORT ASSISTANT ThinPrep Vial Screening, Cervical 11/01/2024 12:34 PM TAPE RECORDER MECHANIC [facility] [employer] [facility] INTERPRETATION/ RESULT NEGATIVE FOR INTRAEPITHELIAL LESION OR MALIGNANCY (NIL) (none) 11/01/2024 12:34 PM TAPE RECORDER MECHANIC [facility] NISM(S) Shift in ariana suggestive of bacterial vaginosis 11/01/2024 12:34 PM TAPE RECORDER MECHANIC [facility] SPECIMEN ADEQUACY Satisfactory for evaluation Endocervical component present 11/01/2024 12:34 PM TAPE RECORDER MECHANIC [facility] HPV REQUEST HPV and PAP 11/01/2024 12:34 PM TAPE RECORDER MECHANIC [facility] Date of LMP unsure 11/01/2024 12:34 PM TAPE RECORDER MECHANIC [facility] Last Pap Date 07/20/23 11/01/2024 12:34 PM TAPE RECORDER MECHANIC [facility] Last Pap Result NIL 12:34 PM TAPE RECORDER MECHANIC [facility] Abnormal Pap or [place] Bx in last 5 years Yes 11/01/2024 12:[address] [facility] Menstrual Status Hormonally Suppressed 11/01/2024 12:34 PM TAPE RECORDER MECHANIC [facility] EN[facility] [place] Bx Done Today No 11/01/2024 12:34 PM TAPE RECORDER MECHANIC [facility] Additional Information None given 11/01/2024 12:34 PM TAPE RECORDER MECHANIC [facility] Comment: Cytology is screened at [facility] - [address], [place] [address] and [facility] - [address], [place] [address] and [facility] - [address] [place] [address] Interpreted at [facility] - [address], [place] [address] Automated Review Successful 11/01/2024 12:34 PM TAPE RECORDER MECHANIC [facility] Comment:Specimen processed s uccessfully by automated software qa system specialist device, ThinPrep Imaging System, [employer] ANCILLARY TESTING PROGRAM SUPPORT ASSISTANT HPV Ordered, Please see separate report 11/01/2024 12:34 PM TAPE RECORDER MECHANIC [facility] Note The pap test is a screening technique, not a diagnostic procedure. It is used primarily to screen for squamous cancers and precursor lesions. Published studies have shown that it is subject to both false negative and false positive results. The pap test should not be used as the sole means to diagnose or exclude pre-malignant and malignant lesions. 11/01/2024 12:34 PM TAPE RECORDER MECHANIC [facility] Other (Cervical) Non-Blood / Unknown 10/24/2024 8:43 AM TAPE RECORDER MECHANIC 10/24/2024 8:43 AM TAPE RECORDER MECHANIC Jess Marti MD PATHOLOGY/CYTOLOGY Teresa l Result [facility] [address] [place] [address], [place] * (ABNORMAL) HPV HIGH RISK (10/24/2024 8:43 AM TAPE RECORDER MECHANIC) TYPE 16 Negative Negative 10/26/2024 3:16 PM TAPE RECORDER MECHANIC [facility] TYPE 18 Negative Negative 10/26/2024 3:16 PM TAPE RECORDER MECHANIC [facility] OTHER HIGH RISK TYPES Positive(A) Negative 10/26/2024 3:16 PM TAPE RECORDER MECHANIC [facility] Other (Cervical) Non-Blood / Unknown 10/24/2024 8:43 AM TAPE RECORDER MECHANIC 10/24/2024 4:34 PM TAPE RECORDER MECHANIC Narrative [facility] - 10/26/2024 3:16 PM TAPE RECORDER MECHANIC Specimen is positive for the DNA of any one of, or combination of, the following high risk HPV types: 31, 33, 35, 39, 45, 51, 52, 56, 58, 59, 66, 68. HPV types 16 and 18 DNA were undetectable or below the pre-set threshold. Methodology: Rommel Pako 4800 HPV Test Jess Marti MD MICROBIOLOGY Final R esult Performing Organization Address City/[facility]/ZIP Co de Phone Number [facility] [address] [place] [address], [place] * LC HCV ANTIBODY RFX TO QUANT PCR (03/12/2023 9:16 AM CDT) Pathologist [facility] HCV Ab Non Reactive Non Reactive 03/14/2023 1:[address] [facility] ([facility]) Blood BLOOD SPECIMEN / Unknown Venipuncture / Unknown 03/12/2023 9:16 AM CDT 03/12/2023 9:17 AM CDT Narrative [facility] ([facility]) - 03/14/2023 1:14 PM CDT Performed at: [address] [place] [id number] Reserve Officer: Sunday Paul MD, Phone: [phone] Jess Marti MD LABORATORY Final R esult Performing Organization Address City/[facility]/ZIP Co de Phone Number [facility] ([facility]) [address] [place] [id number], [place] * ANTI HIV 1/2 (04/24/2015 10:59 AM CDT) Pathologist [facility] HIV-1/HIV-2 ANTIBODY Non-Reacti ve Non-Reacti ve 04/24/2015 4:[address] [facility] Blood specimen (specimen) BLOOD SPECIMEN / Unknown Venipuncture / Unknown 04/24/2015 10:59 AM CDT 04/24/2015 10:59 AM CDT Narrative [facility] - 04/24/2015 4:47 PM CDT HIV-1 p24 and HIV-1/HIV-2 Ab not detected us Kavita Moe PROGRAMMER ANALYST SEND OUTS F inal Result [facility] [address] [place] [address], from Last 3 Months or Most Recently Relevant to Health Maintenance Insurance [facility] Advance Directives * Full Code (Latest Code Status on File) Date Activated Date Inactivated Comments 08/22/2020 8:50 PM 08/28/2020 1:14 PM Question Answer Comments Code Status Discussion: Not Discussed * Full Code Date Activated Date Inactivated Comments 01/13/2018 9:13 PM 01/14/2018 6:40 PM Care Teams Automation Architect Relationship Specialty Start Date End Date Jess Marti MD [address] [place] [address] PCP - General 01/17/10 Levon Gregg MD [address] [place] [address] FLEXO PRESS OPERATOR Obstetrics and Gynecology 04/12/12 Abhinav Husain MD [address] [place] [address] Perinatology DOSIER OPERATOR Perinatology 11/01/12
[2025-01-16 22:13] VITALS: BP 153/95; PULSE 87; RESP 16; TEMP 36.4; O2SAT 97
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
--- OUTSIDE RECORDS SUMMARY | 2025-01-16 22:45 | XMS_ITS | Clinical Summary ---
Author Organization [facility] Address [address] [place] [address] Care Team Providers Care Lumber Piler Operator Name Role Phone Kaia Jess Vides MD Primary Care Provider Levon Gregg MD Unavailable Unavailable Abhinav Husain MD Unavailable [phone] Allergies Active Allergy Reactions Criticality Noted [...] Department Care Team Description 12/16/2024 9:25 AM CAMP HEAD COUNSELOR Office Visit [facility] [address] [place] [address] Dinah Leyva PA Cough (X2 days ); Throat Pain/problem (X2 days ) 12/16/2024 Travel 11/01/2024 Telephone [facility] [address] [place] [address] Jess Marti MD Pap Plan 10/24/2024 10:00 AM CAMP HEAD COUNSELOR Orders Only [facility] [address] [place] [address] Lab, [place] [facility] 10/24/2024 7:50 AM CAMP HEAD COUNSELOR Office Visit [facility] [address] [place] [address] Jess Marti MD Physical (33 yr/Medication refills/) 10/24/2024 Travel from Last 3 Months Immunizations Immunization Administration Dates Next Due COVID-19 vaccine (gis.to-Bio NTech 30mcg/0.3mL) JUAN DIEGO PEREZ 07/15/2021,06/05/2021 DTP [...] on file Legal Sex Female 5:24 AM CAMP HEAD COUNSELOR Gender Identity Not on file Sexual Orientation [...] Comments Blood Pressure 139/91 12/16/2024 9:25 AM CAMP HEAD COUNSELOR Pulse 82 12/16/2024 9:25 AM CAMP HEAD COUNSELOR Temperature 36.8 C (98.2 F) 09/28/2024 8:52 AM CAMP HEAD COUNSELOR Respiratory Rate 16 08/28/2020 7:00 AM CAMP HEAD COUNSELOR Oxygen Saturation 100% 12/16/2024 9:25 AM CAMP HEAD COUNSELOR Inhaled Oxygen Concentration - - Weight 104.1 kg (229 lb 8 oz) 12/16/2024 9:25 AM CAMP HEAD COUNSELOR Height 161 cm (5' 3.39) 10/24/2024 8:02 AM CAMP HEAD COUNSELOR Body Mass Index 40.16 10/24/2024 8:02 AM CAMP HEAD COUNSELOR Plan of Treatment Health Maintenance Due Date [...] STREP ONLY CLINIC Routine 12/16/2024 9:35 AM CAMP HEAD COUNSELOR Cough, unspecified type Fever, unspecified fever cause COVID/FLU/RSV PANEL Routine 12/16/2024 9:33 AM CAMP HEAD COUNSELOR Cough, unspecified type Fever, unspecified fever cause TSH Routine 10/24/2024 9:23 AM CAMP HEAD COUNSELOR Other specified hypothyroidism BASIC METABOLIC PANEL Routine 10/24/2024 9:23 AM CAMP HEAD COUNSELOR HTN (hypertension) DISPLAY MANAGER THIN PREP PAP SCREEN IMAGED Routine 10/24/2024 8:43 AM CAMP HEAD COUNSELOR Screening for cervical cancer HPV HIGH RISK Routine 10/24/2024 8:43 AM CAMP HEAD COUNSELOR Screening for cervical cancer LC HCV ANTIBODY RFX TO QUANT PCR Routine 03/12/2023 9:16 AM CDT Need for hepatitis C screening test ANTI HIV 1/2 Routine 04/24/2015 10:59 AM CDT Supervision of other normal , first trimester from Last 3 Months or Most Recently Relevant to Health Maintenance Results * POCT Throat Rapid Strep (12/16/2024 9:35 AM CAMP HEAD COUNSELOR) POC, GROUP A STREP NOT DETECTED NOT DETECTED [facility] Comment: The [place] [employer] recommends that a throat culture be performed if a rapid group A streptococcus assay yields a negative result. [facility] recommends Streptococcus, Group A culture. Throat SPECIMEN FROM THROAT / Unknown 12/16/2024 9:35 AM CAMP HEAD COUNSELOR 12/16/2024 9:35 AM CAMP HEAD COUNSELOR Dinah VIDAL MICROBIOLOGY Final Result [facility] [address] [place] [address], [facility] [address] [place] [address] * COVID/FLU/RSV PANEL (12/16/2024 9:33 AM CAMP HEAD COUNSELOR) [facility] COVID 19 [facility] MOLECULAR Negative Negative 12/16/2024 2:37 PM CAMP HEAD COUNSELOR [facility] Comment:All PCR tests are paul bject to false negative result due to variability in viral load and collection technique. A negative result does not rule out a SARS-CoV-2 infection. Clinical correlation required. INFLUENZA A PCR Negative 2:37 PM CAMP HEAD COUNSELOR [facility] INFLUENZA B PCR Negative 2:37 PM CAMP HEAD COUNSELOR [facility] Respiratory Syncytial Virus Negative 12/16/2024 2:37 PM CAMP HEAD COUNSELOR [facility] Swab NASOPHARYNGEAL SWAB / Unknown Non-Blood / Unknown 12/16/2024 9:33 AM CAMP HEAD COUNSELOR 12/16/2024 9:33 AM CAMP HEAD COUNSELOR Dinah VIDAL MICROBIOLOGY Final Result [facility] [address] [place] [address], [place] * TSH (10/24/2024 9:23 AM CAMP HEAD COUNSELOR) [facility] TSH 0.69 mIU/L [facility] Comment: Reference Range > or = 20 Years 0.40-4.50 Ranges First trimester 0.26-2.66 Second trimester 0.55-2.73 Third trimester 0.43-2.91 Blood BLOOD SPECIMEN / Unknown 10/24/2024 9:23 AM CAMP HEAD COUNSELOR 10/24/2024 9:24 AM CAMP HEAD COUNSELOR us Jess Marti MD CHEMISTRY Final R esult [facility] [address] [place] [address], [facility] [address] [place] [address] * BASIC METABOLIC PANEL (10/24/2024 9:23 AM CAMP HEAD COUNSELOR) [facility] GLUCOSE 87 65 - 99 [...] BLOOD SPECIMEN / Unknown 10/24/2024 9:23 AM CAMP HEAD COUNSELOR 10/24/2024 9:24 AM CAMP HEAD COUNSELOR us Jess Marti MD CHEMISTRY Final R esult [employer] [facility] [address] [place] [address], [facility] [address] [place] [address] * DISPLAY MANAGER THIN PREP PAP SCREEN IMAGED [[id number]] (10/24/2024 8:43 AM CAMP HEAD COUNSELOR) Case Report Gynecologic Cytology Report Case: [id number] Authorizing Provider: Jess Marti MD Collected: 10/24/2024 0843 Ordering Location: [facility] Received: 10/24/2024 0843 Clinic First Screen: Felix Sanchez Rescreen: Radha Drummond Specimen: DISPLAY MANAGER ThinPrep Vial Screening, Cervical 11/01/2024 12:34 PM CAMP HEAD COUNSELOR [facility] [employer] [facility] INTERPRETATION/ RESULT NEGATIVE FOR INTRAEPITHELIAL LESION OR MALIGNANCY (NIL) (none) 11/01/2024 12:34 PM CAMP HEAD COUNSELOR [facility] ENTRAL [facility] NISM(S) Shift in ariana suggestive of bacterial vaginosis 11/01/2024 12:34 PM CAMP HEAD COUNSELOR [facility] ENTRAL LAB[facility]ORY SPECIMEN ADEQUACY Satisfactory for evaluation Endocervical component present 11/01/2024 12:34 PM CAMP HEAD COUNSELOR [facility] HPV REQUEST HPV and PAP 11/01/2024 12:34 PM CAMP HEAD COUNSELOR [facility] Date of LMP unsure 11/01/2024 12:34 PM CAMP HEAD COUNSELOR [facility] Last Pap Date 07/20/23 11/01/2024 12:34 PM CAMP HEAD COUNSELOR [facility] Last Pap Result NIL 12:34 PM CAMP HEAD COUNSELOR [facility] Abnormal Pap or Ivanhoe Bx in last 5 years Yes 11/01/2024 12:34 PM CAMP HEAD COUNSELOR [facility] Menstrual Status Hormonally Suppressed 11/01/2024 12:34 PM CAMP HEAD COUNSELOR [facility] ENTRAL LAB[facility] Ivanhoe Bx Done Today No 11/01/2024 12:34 PM CAMP HEAD COUNSELOR [facility] Additional Information None given 11/01/2024 12:34 PM CAMP HEAD COUNSELOR [facility] Comment: Cytology is screened at [facility] - [address], [place] [address] and [facility] - [address] [place] [address] and [facility] - [address] [place] [address] Interpreted at [facility] - [address], [place] [address] Automated Review Successful 11/01/2024 12:34 PM CAMP HEAD COUNSELOR [facility] Comment:Specimen processed s uccessfully by automated commercial announcer device, [employer] System, [employer] ANCILLARY TESTING DISPLAY MANAGER HPV Ordered, Please see separate report 11/01/2024 12:34 PM CAMP HEAD COUNSELOR [facility] Note The pap test is a screening technique, not a diagnostic procedure. It is used primarily to screen for squamous cancers and precursor lesions. Published studies have shown that it is subject to both false negative and false positive results. The pap test should not be used as the sole means to diagnose or exclude pre-malignant and malignant lesions. 11/01/2024 12:34 PM CAMP HEAD COUNSELOR [facility] Other (Cervical) Non-Blood / Unknown 10/24/2024 8:43 AM CAMP HEAD COUNSELOR 10/24/2024 8:43 AM CAMP HEAD COUNSELOR Jess Marti MD PATHOLOGY/CYTOLOGY Teresa l Result [facility] [address] [place] [address], [place] * (ABNORMAL) HPV HIGH RISK (10/24/2024 8:43 AM CAMP HEAD COUNSELOR) TYPE 16 Negative Negative 10/26/2024 3:16 PM CAMP HEAD COUNSELOR [facility] TYPE 18 Negative Negative 10/26/2024 3:16 PM CAMP HEAD COUNSELOR [facility] OTHER HIGH RISK TYPES Positive(A) Negative 10/26/2024 3:16 PM CAMP HEAD COUNSELOR [facility] Other (Cervical) Non-Blood / Unknown 10/24/2024 8:43 AM CAMP HEAD COUNSELOR 10/24/2024 4:34 PM CAMP HEAD COUNSELOR Narrative [facility] - 10/26/2024 3:16 PM CAMP HEAD COUNSELOR Specimen is positive for the DNA of any one of, or combination of, the following high risk HPV types: 31, 33, 35, 39, 45, 51, 52, 56, 58, 59, 66, 68. HPV types 16 and 18 DNA were undetectable or below the pre-set threshold. Methodology: Rommel Pako 4800 HPV Test Jess Marti MD MICROBIOLOGY Final R esult Performing Organization Address City/[facility]/ZIP Co de Phone Number [facility] [address] [place] [address], [place] * LC HCV ANTIBODY RFX TO QUANT PCR (03/12/2023 9:16 AM CDT) Pathologist [facility] HCV Ab Non Reactive Non Reactive 03/14/2023 1:14 PM CDT [facility] ([facility]) Blood BLOOD SPECIMEN / Unknown Venipuncture / Unknown 03/12/2023 9:16 AM CDT 03/12/2023 9:17 AM CDT Narrative [facility] ([facility]) - 03/14/2023 1:14 PM CDT Performed at: [address] [place] [id number] [employer]: Sunday Paul MD, Phone: [phone] Jess Marti MD LABORATORY Final R esult Performing Organization Address City/[facility]/ZIP Co de Phone Number [facility] ([facility]) [address] [place] [id number], [place] * ANTI HIV 1/2 (04/24/2015 10:59 AM CDT) Pathologist [facility] HIV-1/HIV-2 ANTIBODY Non-Reacti ve Non-Reacti ve 04/24/2015 4:47 PM CDT [facility] Blood specimen (specimen) BLOOD SPECIMEN / Unknown Venipuncture / Unknown 04/24/2015 10:59 AM CDT 04/24/2015 10:59 AM CDT Narrative [facility] - 04/24/2015 4:47 PM CDT HIV-1 p24 and HIV-1/HIV-2 Ab not detected us Kavita Moe [employer] SEND OUTS F inal Result [facility] [address] [place] [address], from Last 3 Months or Most Recently Relevant to Health Maintenance Insurance [facility] Advance Directives * Full Code (Latest Code Status on File) Date Activated Date Inactivated Comments 08/22/2020 8:50 PM 08/28/2020 1:14 PM Question Answer Comments Code Status Discussion: Not Discussed * Full Code Date Activated Date Inactivated Comments 01/13/2018 9:13 PM 01/14/2018 6:40 PM Care Teams Lumber Piler Operator Relationship Specialty Start Date End Date Jess Marti MD [address] [place] [address] PCP - General 01/17/10 Levon Gregg MD [address] [place] [address] PAPER TWISTER Obstetrics and Gynecology 04/12/12 Abhinav Husain MD [address] [place] [address] Perinatology TRAY CASTING MACHINE OPERATOR Perinatology 11/01/12
== END 2025-01-16 23:45 | disposition home or self-care (01) ==
PROVIDERS: Emergency Provider Family Medicine; PCP Family Medicine
DX: S16.1XXA Strain of muscle, fascia and tendon at neck level, initial encounter (principal); V49.9XXA Car occupant (driver) (passenger) injured in unspecified traffic accident, initial encounter
CPT/HCPCS: 72125; 73090; 99284